=== PATIENT | male | born 1990 | race Caucasian/White ===

== ENCOUNTER → 2017-03-11 | Outpatient (CLI) | payer BC ==
[2017-03-13 16:37] LABS: QUANTIF TB AG-NIL <0.00 IU/ML; QUANTIFERON NIL 0.03 IU/ML
== END | disposition home or self-care (01) ==
LOC: C.LAB1850 10:31
PROVIDERS: ATTEND Internal Medicine
DX: Z11.1 Encounter for screening for respiratory tuberculosis (principal); Z00.00 Encounter for general adult medical examination without abnormal findings